=== PATIENT | female | born 1940 | race Caucasian/White ===

== ENCOUNTER 2022-04-04 07:16 | Outpatient (CLI) | payer MEDICARE, BC, SELFPAY ==
--- NOTE | 2022-04-04 07:15 | CRLHL7_ITS ---
For Patients: As a result of the Cures Act, medical imaging exams and procedure reports are released immediately into your electronic medical record. You may view this report before your referring provider. If you have questions, please contact your health care provider. INDICATION: Unilateral left side sweating. TECHNIQUE: Brain is scanned with sagittal T1, axial FLAIR, T2 diffusion-weighted susceptibility images. Findings : The lateral, 3rd and 4th ventricles are normal in size and configuration. There is no evidence of recent ischemic infarction. There no evidence of intracranial hemorrhage. There is no intracranial mass effect. There are small foci of FLAIR/T2 signal hyperintensity within the bilateral supratentorial white matter, basal ganglia, thalamus and siria consistent with chronic microvascular ischemic changes and small chronic lacunar infarcts. There is no evidence of posterior fossa mass. No lesions seen within the carotid spaces down to the level of C1. The orbits, sella turcica and paranasal sinuses and skull base are unremarkable. IMPRESSION: 1. No evidence of intracranial mass lesion, recent infarction or intracranial hemorrhage. No focal posterior fossa lesion is seen. 2. Signal abnormalities consistent with moderate chronic small vessel ischemic changes and small chronic lacunar infarcts as described above. Dictated by Brandon Reaves MD @ 04/04/2022 8:54:44 AM (Electronically Signed)
== END 2022-04-04 07:17 | disposition home or self-care (01) ==
PROVIDERS: Visit Provider Internal Medicine
DX: R61 Generalized hyperhidrosis (principal); I67.82 Cerebral ischemia
CPT/HCPCS: 70551

== ENCOUNTER 2024-04-05 10:09 | Outpatient (CLI) | payer MEDICARE, BC, SELFPAY ==
--- NOTE | 2024-04-05 10:45 | CRLHL7_ITS ---
For Patients: As a result of the Century Cures Act, medical imaging exams and procedure reports are released immediately into your electronic medical record. You may view this report before your referring provider. If you have questions, please contact your health care provider. Indication: claudication Comparison: None Technique: Routine duplex arterial examination of bilateral lower extremities including 2D and spectral analysis, and color Doppler imaging was performed. Findings: In the right lower extremity there are multiphasic waveforms in the common femoral artery, profunda femoral artery, superficial femoral artery, and popliteal artery. Monophasic waveforms are present within the peroneal, posterior tibial and anterior tibial arteries. Multiphasic waveform within dorsalis pedis artery. No elevated velocities. In the left lower extremity there are multiphasic waveforms within the common femoral artery, profunda femoral artery and superficial femoral artery. Monophasic waveforms are present within the popliteal, peroneal, posterior tibial, anterior tibial and dorsalis pedis arteries. Impression: No elevated velocities to suggest short-segment stenosis. Monophasic waveforms within the calves bilaterally consistent with intrinsic atherosclerosis. Dictated by Clem Toro MD @ 04/05/2024 1:19:43 PM (Electronically Signed)
== END 2024-04-05 10:10 | disposition home or self-care (01) ==
LOC: US 10:12
PROVIDERS: Visit Provider Internal Medicine
DX: I73.9 Peripheral vascular disease, unspecified (principal)
CPT/HCPCS: 93926